=== PATIENT | female | born 1970 | race Caucasian/White ===

== ENCOUNTER 2017-08-12 13:30 | Emergency (ER) | payer BC, MEDICAID, OTHER ==
[2017-08-12] MEDS ORDERED: Sodium Chloride 0.9% 10 ML Syringe FLUSH PRN (13:46)
[2017-08-12] MEDS ORDERED: Prochlorperazine 10 MG in Sodium Chloride 0.9% 50 ML IV ONE (13:46)
[2017-08-12] MEDS ORDERED: LORazepam 2 MG/ML SDV IVPUSH ONE (13:46)
[2017-08-12] MEDS ORDERED: Sodium Chloride 0.9% 1,000 ML IV SCH (14:00)
[2017-08-12] MEDS ORDERED: Prochlorperazine 10 MG/2 ML SDV ONE (14:06)
[2017-08-12] MEDS ORDERED: Prochlorperazine 10 MG in Sodium Chloride 0.9% 100 ML IV ONE (14:16)
[2017-08-12 16:59] VITALS: BP 122/76
--- NOTE | 2017-08-13 01:06 | ER ---
DATE SEEN: 08/12/2017 REASON FOR VISIT: Nausea and vomiting. HISTORY OF PRESENT ILLNESS: This is a 46-year-old female complaining of nausea, vomiting, and diarrhea for 4 to 5 days; unable to keep anything down; no abdominal pain; has anxiety, was recently started on Klonopin, but she still feels anxious; denies fever or chills. PAST SURGICAL HISTORY: Hysterectomy and C-sections x4. MEDICATIONS: Medications were reviewed. Please see Epic. PAST MEDICAL HISTORY: Bipolar disorder. PHYSICAL EXAMINATION: GENERAL: Anxious but not in distress. VITAL SIGNS: Normal vital signs. ENT: Negative. CHEST: Clear. ABDOMEN: Soft and benign. No tenderness or masses. LABORATORIES: Creatinine is 1.3. The rest of the electrolytes, urea, and blood counts are normal. IMPRESSION: 1. Acute gastroenteritis. 2. Anxiety. TREATMENT: 1. Compazine and lorazepam. 2. IV crystalloid 1 L. 3. Follow up in the office as needed. Return to the ED with any worsening symptoms. TIME SEEN: 1430 hours. /[id number] OPAL/AMI
== END 2017-08-12 15:32 | disposition home or self-care (01) ==
LOC: FB.ED 13:30
DX: K52.9 Noninfective gastroenteritis and colitis, unspecified (principal); F41.9 Anxiety disorder, unspecified
CPT/HCPCS: 36415; 80053; 85025; 96361; 96365; 96375; 99284; J0780; J2060; J7030; J7050

== ENCOUNTER 2020-01-28 23:09 | Emergency (ER) | payer SELFPAY ==
[2020-01-29 00:42] VITALS: BP 135/89; PULSE 90
--- NOTE | 2020-01-29 01:11 | EDM.PDOC ---
ED HPI GENERAL MEDICAL PROBLEM - General Chief Complaint: Gastrointestinal Problem Stated Complaint: NAUSEA; VOMITING; DIARHEA Time Seen by Provider: 01/28/20 23:15 Source of Information: Reports: Patient, Old Records History Limitations: Reports: No Limitations - History of Present Illness INITIAL COMMENTS - FREE TEXT/NARRATIVE: Mariana comes into [facility] ED with a 36 hour hx of Gi upset, some nausea and vomiting, and more recent diarrhea. There has been low grade fever, but no chills or sweats. There are no voiding sxs. She has tried no meds. bodyaching Pain Score (Numeric/FACES): 8 - Related Data Allergies Allergy/AdvReac Type Severity Reaction Status Date / Time Penicillins Allergy Unknown unknown Verified 08/12/17 14:32 propranolol Allergy Arrhythmias Verified 08/12/17 14:32 Home Meds: Home Meds FLUoxetine [PROzac] 20 mg PO ASDIRECTED 08/30/15 [History] Gabapentin [Neurontin] 300 mg PO ASDIRECTED 08/30/15 [History] QUEtiapine [SEROquel] 150 mg PO ASDIRECTED 08/30/15 [History] ClonazePAM [KlonoPIN] 0.5 tab PO BID 08/12/17 [History] [place] Carbonate 900 mg PO DAILY 08/12/17 [History] Past Medical History Psychiatric History: Reports: Anxiety, Bipolar, Depression Social & Family History - Family History Family Medical History: No Pertinent Family History - Tobacco Use Tobacco Use Status *Q: Former Tobacco User Used Tobacco, but Quit: Yes Month/Year Tobacco Last Used: 1999 - Caffeine Use Caffeine Use: Reports: None ED ROS GENERAL - Review of Systems Review Of Systems: Comprehensive ROS is negative, except as noted in HPI. ED EXAM, GI/ABD - Physical Exam Exam: See Below Exam Limited By: No Limitations General Appearance: Alert, WD/WN, No Apparent Distress, Obese Eyes: Bilateral: Normal Appearance, EOMI Ears: Normal External Exam Nose: Normal Inspection Throat/Mouth: Normal Inspection, Normal Lips, Normal Gums, Normal Oropharynx, Normal Voice Head: Normocephalic Neck: Normal Inspection, Supple, Non-Tender Respiratory/Chest: Lungs Clear Cardiovascular: Regular Rate, Rhythm, No Murmur GI/Abdominal Exam: Normal Bowel Sounds, Soft, Non-Tender, No Organomegaly, No Distention, No Mass (Female) Exam: Deferred Rectal (Female) Exam: Deferred Back Exam: Normal Inspection Extremities: Normal Inspection Neurological: Alert, Oriented, CN II-XII Intact, Normal Cognition, Normal Gait, No Motor/Sensory Deficits Psychiatric: Normal Affect, Normal Mood Skin Exam: Warm, Dry, Intact, Normal Color, No Rash Lymphatic: No Adenopathy Course - Vital Signs Text/Narrative:: A requested Covid 19 screen was NEG. Last Recorded V/S: Last Vital Signs Temp 36.6 C 01/29/20 00:20 Pulse 90 01/29/20 00:20 Resp 19 01/29/20 00:20 BP 135/89 01/29/20 00:20 Pulse Ox 98 01/29/20 00:20 - Orders/Labs/Meds Labs: Laboratory Tests 01/28/20 Range/Units 23:10 SARS-CoV-2 RNA ([facility]) Negative (NEGATIVE) Departure - Departure Time of Disposition: 00:15 Disposition: Home, Self-Care 01 Condition: Fair Clinical Impression: Gastroenteritis - Discharge Information *PRESCRIPTION DRUG MONITORING PROGRAM REVIEWED*: Not Applicable *COPY OF PRESCRIPTION DRUG MONITORING REPORT IN PATIENT [place]: Not Applicable Instructions: Viral Gastroenteritis, Adult Referrals: PCP,None [Primary Care Provider] - Forms: ED Department Discharge Additional Instructions: Try BRAT diet (Banana, Rice , Apple, Tea) then gradually advance diet as tolerated. Follow up with your Primary Care Provider as needed. Sepsis Event Note (ED) - Evaluation Sepsis Screening Result: No Definite Risk - Focused Exam Vital Signs: Vital Signs Temp Pulse Resp BP Pulse Ox 01/29/20 00:20 36.6 C 90 19 135/89 98 01/28/20 23:09 36.4 C 74 17 140/99 H 100 - Problem List & Annotations (1) Gastroenteritis SNOMED Code(s): 45084019 Code(s): K52.9 - NONINFECTIVE GASTROENTERITIS AND COLITIS, UNSPECIFIED Status: Acute Annotation/Comment:: I suggested Immodium for diarrhea, hydration, and rest. A note for work was provided. - Problem List Review Problem List Initiated/Reviewed/Updated: Yes - Assessment/Plan Plan: Follow up with PCP if needed.
== END 2020-01-29 00:20 | disposition home or self-care (01) ==
LOC: FB.ED 23:09
DX: K52.9 Noninfective gastroenteritis and colitis, unspecified (principal); F41.9 Anxiety disorder, unspecified; F31.9 Bipolar disorder, unspecified; Z87.891 Personal history of nicotine dependence; Z20.828 Contact with and (suspected) exposure to other viral communicable diseases; Z88.0 Allergy status to penicillin; Z88.8 Allergy status to other drugs, medicaments and biological substances; Z79.899 Other long term (current) drug therapy
CPT/HCPCS: 99283; 99284; U0002

== ENCOUNTER 2022-11-18 13:49 | Emergency (ER) | payer BC ==
[2022-11-18] MEDS ORDERED: Lidocaine 1% 5 ML VIAL INFILT ONE (13:50)
[2022-11-18] MEDS ORDERED: Rabies Immune Globulin/PF (HyperRAB) 300 UNIT/ML 1 ML SDV IM ONE ×2 (14:14→14:30)
[2022-11-18] MEDS ORDERED: Rabies Vaccine (Avian) 2.5 Unit Inj Kit IM ONE (14:14)
[2022-11-18] MEDS ORDERED: cefTRIAXone 1 GM Vial IM ONE (14:17)
[2022-11-18] MEDS ORDERED: metroNIDAZOLE 500 MG Tab PO ONE (14:17)
[2022-11-18] MEDS ORDERED: Ketorolac 30 MG/ML SDV IM ONE (14:18)
[2022-11-18] MEDS ORDERED: Diphtheria,Pertussis(Acell),Tetanus Vaccine 0.5 ML Syringe IM ONE (15:58)
[2022-11-18 17:25] VITALS: BP 121/81; PULSE 90
== END 2022-11-18 16:26 | disposition home or self-care (01) ==
LOC: FB.ED 13:49
DX: S51.852A Open bite of left forearm, initial encounter (principal); Z23 Encounter for immunization; Z88.0 Allergy status to penicillin; Z88.8 Allergy status to other drugs, medicaments and biological substances; W54.0XXA Bitten by dog, initial encounter
CPT/HCPCS: 12001; 90375; 90471; 90675; 90715; 96372; 99283; A9270; J0696; J1885

== ENCOUNTER 2024-06-18 20:38 | Observation (INO) | payer BC, MEDICAID ==
[2024-06-18] MEDS ORDERED: Sodium Chloride 0.9% 10 ML Syringe FLUSH PRN (20:40)
[2024-06-18] MEDS: LORazepam 2 MG/ML SDV IVPUSH ONE (21:04)
[2024-06-18] MEDS: Ondansetron 4 MG/2 ML SDV IVPUSH ONE (21:04)
[2024-06-18] MEDS: Sodium Chloride 0.9% 1,000 ML IV SCH ×2 (21:04→22:31)
[2024-06-18 21:19] LABS: BLOOD UREA NITROGEN,BUN 19 mg/dL (7-18); BUN/CREATININE RATIO 12.7 (9-20); CALCIUM 10.6 mg/dL (8.6-10.2); CARBON DIOXIDE,CO2 18 mmol/L (21-32); CHLORIDE,CL 102 mmol/L (100-110); CREATININE 1.5 mg/dL (0.55-1.02); ESTIMATED GFR 42 mL/min (>60); GLUCOSE RANDOM 137 mg/dL (80-116); POTASSIUM,K 3.4 mmol/L (3.5-5.3); SODIUM,NA 141 mmol/L (135-145)
[2024-06-18 21:22] LABS: BASOPHILS PERCENT AUTO 0.2 % (0.2-1.5); EOSINOPHILS ABSOLUTE AUTO 0.1 x10-3/uL (0.0-0.8); EOSINOPHILS PERCENT AUTO 0.6 % (0.6-8.1); HEMATOCRIT 48.2 % (34.2-48.2); HEMOGLOBIN 16.4 g/dL (11.4-15.5); LYMPHOCYTES ABSOLUTE AUTO 2.4 x10-3/uL (1.0-4.4); LYMPHOCYTES PERCENT AUTO 26.5 % (18.4-52.1); MEAN CORPUSCULAR HEMOGLOBIN 31.3 pg (23.9-33.9); MEAN CORPUSCULAR HGB CONC 33.9 g/dL (31.9-34.8); MEAN CORPUSCULAR VOLUME 92.4 fL (76.7-100.5); MEAN PLATELET VOLUME 7.7 fL (7.1-12.4); MONOCYTES ABSOLUTE AUTO 0.4 x10-3/uL (0.3-1.0); NEUTROPHILS ABSOLUTE AUTO 6.3 x10-3/uL (1.5-6.3); NEUTROPHILS PERCENT AUTO 68.7 % (30.8-76.2); PLATELET COUNT,PLT 295 x10(3)uL (151-488); RED BLOOD CELL COUNT 5.22 x10(6)uL (3.60-5.20); RED CELL DISTRIBUTION WIDTH 13.7 % (12.3-16.5); WHITE BLOOD CELL COUNT,WBC 9.1 x10-3/uL (3.0-10.3)
[2024-06-18 21:25] LABS: A/G RATIO 1.1; ALANINE AMINOTRANSFERASE,ALT 23 U/L (12-36); ALBUMIN 4.7 g/dL (3.5-5.2); ALKALINE PHOSPHATASE 61 IU/L (56-112); ASPARTATE AMNIOTRANSFERASE,AST 18 IU/L (5-25); BILIRUBIN TOTAL 0.6 mg/dL (0.1-1.3); PROTEIN TOTAL,TP 8.9 g/dL (6.0-8.0)
[2024-06-18 21:27] LABS: TROPONIN I 5.9 pg/mL (4.0-60.3)
[2024-06-18 21:28] LABS: ETHANOL BLOOD MEDICAL < 0.03 % (<0.03)
[2024-06-18 21:34] LABS: LACTIC ACID 4.7 mmol/L (0.4-2.0)
[2024-06-18 21:51] LABS: HEMOGLOBIN A1C 5.4 % (<5.7)
[2024-06-18] MEDS: Iopamidol 755 Mg/ML 100 ML Bottle IV SCH (21:59)
[2024-06-18 22:09] LABS: BILIRUBIN,URINE NEGATIVE (NEGATIVE); GLUCOSE,URINE NORMAL (NORMAL); KETONES,URINE 50 mg/dL (NEGATIVE); LEUKOCYTE ESTERASE,URINE NEGATIVE (NEGATIVE); NITRITE,URINE NEGATIVE (NEGATIVE); OCCULT BLOOD,URINE TRACE (NEGATIVE); PROTEIN,URINE TRACE mg/dL (NEGATIVE); UROBILINOGEN,URINE NORMAL (NEGATIVE)
[2024-06-18 22:10] LABS: APPEARANCE,URINE CLEAR (CLEAR); COLOR,URINE YELLOW (YELLOW)
[2024-06-18] MEDS: Ketorolac 30 MG/ML SDV IVPUSH ONE (22:18)
[2024-06-18] MEDS: Pantoprazole 40 MG Vial IVPUSH ONE (22:18)
[2024-06-18 22:24] LABS: AMPHETAMINES SCREEN, URINE NEGATIVE (NEGATIVE); BARBITURATE SCREEN,URINE NEGATIVE (NEGATIVE); BENZODIAZEPINES SCREEN,URINE POSITIVE (NEGATIVE); METHADONE SCREEN, URINE NEGATIVE (NEGATIVE); METHAMPHETAMINE SCREEN, URINE NEGATIVE (NEGATIVE); OXYCODONE SCREEN,URINE NEGATIVE (NEGATIVE)
[2024-06-18 22:25] LABS: BUPRENORPHINE SCREEN,URINE NEGATIVE (NEGATIVE); THC SCREEN,URINE POSITIVE (NEGATIVE)
[2024-06-18 22:34] LABS: BACTERIA,URINE NOT SEEN (NS); EPITHELIAL CELLS,URINE FEW; MUCUS,URINE FEW (NS); RBC,URINE 0-5 (0-5); WBC,URINE 0-5 (0-5)
[2024-06-18 22:37] LABS: BASE EXCESS VENOUS,POC -5 mmol/L (-2 - 3+); PCO2 VENOUS,POC 28 mmHg (41-51); PH VENOUS,POC 7.42 pH Units (7.32-7.43)
[2024-06-18] MEDS ORDERED: Ondansetron 4 MG/2 ML SDV IV PRN (22:42)
[2024-06-18] MEDS: Morphine 2 MG/ML SYRINGE IVPUSH PRN (22:53)
[2024-06-18] MEDS: Metoclopramide 10 MG/2 ML SDV IVPUSH PRN (22:55)
[2024-06-19] MEDS: Enoxaparin 40 MG/0.4 ML Syringe SUBCUT SCH (01:56)
[2024-06-19] MEDS: LORazepam 2 MG/ML SDV IV PRN (02:10)
[2024-06-19 06:47] LABS: BASOPHILS PERCENT AUTO 0.1 % (0.2-1.5); EOSINOPHILS ABSOLUTE AUTO 0.1 x10-3/uL (0.0-0.8); EOSINOPHILS PERCENT AUTO 0.6 % (0.6-8.1); HEMATOCRIT 40.4 % (34.2-48.2); HEMOGLOBIN 13.1 g/dL (11.4-15.5); LYMPHOCYTES ABSOLUTE AUTO 1.2 x10-3/uL (1.0-4.4); LYMPHOCYTES PERCENT AUTO 12.6 % (18.4-52.1); MEAN CORPUSCULAR HEMOGLOBIN 30.3 pg (23.9-33.9); MEAN CORPUSCULAR HGB CONC 32.5 g/dL (31.9-34.8); MEAN PLATELET VOLUME 7.8 fL (7.1-12.4); MONOCYTES ABSOLUTE AUTO 0.3 x10-3/uL (0.3-1.0); MONOCYTES PERCENT AUTO 3.2 % (4.4-15.7); NEUTROPHILS ABSOLUTE AUTO 7.7 x10-3/uL (1.5-6.3); NEUTROPHILS PERCENT AUTO 83.5 % (30.8-76.2); PLATELET COUNT,PLT 259 x10(3)uL (151-488); RED BLOOD CELL COUNT 4.34 x10(6)uL (3.60-5.20); WHITE BLOOD CELL COUNT,WBC 9.2 x10-3/uL (3.0-10.3)
[2024-06-19 07:01] LABS: A/G RATIO 1.1; ALANINE AMINOTRANSFERASE,ALT 22 U/L (12-36); ALBUMIN 3.9 g/dL (3.5-5.2); ALKALINE PHOSPHATASE 47 IU/L (56-112); ASPARTATE AMNIOTRANSFERASE,AST 15 IU/L (5-25); BILIRUBIN TOTAL 0.5 mg/dL (0.1-1.3); BLOOD UREA NITROGEN,BUN 15 mg/dL (7-18); BUN/CREATININE RATIO 11.5 (9-20); CARBON DIOXIDE,CO2 22 mmol/L (21-32); CHLORIDE,CL 107 mmol/L (100-110); CREATININE 1.3 mg/dL (0.55-1.02); EST CRCL DRUG DOSING (CG) 36.77 mL/min; ESTIMATED GFR 50 mL/min (>60); GLUCOSE RANDOM 113 mg/dL (80-116); POTASSIUM,K 3.9 mmol/L (3.5-5.3); PROTEIN TOTAL,TP 7.4 g/dL (6.0-8.0); SODIUM,NA 142 mmol/L (135-145)
[2024-06-19] MEDS ORDERED: LORazepam 0.5 MG Tab PO PRN (09:11)
[2024-06-19] MEDS ORDERED: Albuterol 6.7 GM Inhaler INH PRN (09:11)
[2024-06-19] MEDS ORDERED: Temazepam 15 MG Cap PO PRN (09:11)
[2024-06-19] MEDS ORDERED: SUMAtriptan 50 MG Tab PO PRN (09:19)
[2024-06-19 11:25] VITALS: BP 95/58; PULSE 78
[2024-06-19] MEDS ORDERED: Pramipexole 0.25 MG Tab PO SCH (21:00)
[2024-06-19] MEDS ORDERED: Pregabalin 75 MG Cap PO SCH (21:00)
[2024-06-19] MEDS ORDERED: NALTREXONE HCL 4.5 MG PO SCH (21:00)
[2024-06-19] MEDS ORDERED: Prazosin 1 MG Cap PO SCH (21:00)
[2024-06-20] MEDS ORDERED: Levothyroxine 75 MCG Tab PO SCH (06:00)
[2024-06-20] MEDS ORDERED: Non-Formulary Medication 1 Each (Fluoxetine Hcl [Fluoxetine Hcl] 40 MG Capsule) PO SCH (09:00)
[2024-06-20] MEDS ORDERED: Rosuvastatin 20 MG Tab PO SCH (09:00)
== END 2024-06-19 11:10 | disposition home or self-care (01) ==
LOC: FB.ED 20:38 → FB.MS 22:42
PROVIDERS: ADMIT Family Medicine; ATTEND Family Medicine
DX: R11.2 Nausea with vomiting, unspecified (principal); T43.225A Adverse effect of selective serotonin reuptake inhibitors, initial encounter; T48.295A Adverse effect of other drugs acting on muscles, initial encounter; N17.9 Acute kidney failure, unspecified; F31.9 Bipolar disorder, unspecified; F43.10 Post-traumatic stress disorder, unspecified; F41.1 Generalized anxiety disorder; M79.7 Fibromyalgia; E86.0 Dehydration; Z79.899 Other long term (current) drug therapy
CPT/HCPCS: 36415; 74177; 80053; 80307; 81001; 83036; 83605; 83735; 84484; 85025; 86140; 96361; 96374; 96375; 96376; 99222; 99238; 99285; 99285-25; G0378; J1885; J2060; J2270; J2405; J2470; J2765; J7030; Q9967

== ENCOUNTER 2024-06-20 19:34 | Observation (INO) | payer BC, MEDICAID ==
[2024-06-20] MEDS: LORazepam 2 MG/ML SDV IVPUSH ONE (19:56)
[2024-06-20] MEDS: hydrOXYzine HCl 50 MG/ML SDV IM ONE (19:56)
[2024-06-20] MEDS: Sodium Chloride 0.9% 1,000 ML IV SCH (20:00)
[2024-06-20 20:03] LABS: BASOPHILS ABSOLUTE AUTO 0.1 x10-3/uL (0.0-0.1); BASOPHILS PERCENT AUTO 0.6 % (0.2-1.5); EOSINOPHILS PERCENT AUTO 0.3 % (0.6-8.1); HEMATOCRIT 39.3 % (34.2-48.2); HEMOGLOBIN 13.2 g/dL (11.4-15.5); LYMPHOCYTES ABSOLUTE AUTO 2.4 x10-3/uL (1.0-4.4); LYMPHOCYTES PERCENT AUTO 23.3 % (18.4-52.1); MEAN CORPUSCULAR HEMOGLOBIN 30.7 pg (23.9-33.9); MEAN CORPUSCULAR HGB CONC 33.7 g/dL (31.9-34.8); MEAN CORPUSCULAR VOLUME 90.9 fL (76.7-100.5); MEAN PLATELET VOLUME 7.9 fL (7.1-12.4); MONOCYTES ABSOLUTE AUTO 0.6 x10-3/uL (0.3-1.0); MONOCYTES PERCENT AUTO 6.1 % (4.4-15.7); NEUTROPHILS ABSOLUTE AUTO 7.3 x10-3/uL (1.5-6.3); NEUTROPHILS PERCENT AUTO 69.7 % (30.8-76.2); PLATELET COUNT,PLT 269 x10(3)uL (151-488); RED BLOOD CELL COUNT 4.32 x10(6)uL (3.60-5.20); RED CELL DISTRIBUTION WIDTH 13.9 % (12.3-16.5); WHITE BLOOD CELL COUNT,WBC 10.5 x10-3/uL (3.0-10.3)
[2024-06-20 20:06] LABS: BLOOD UREA NITROGEN,BUN 10 mg/dL (7-18); BUN/CREATININE RATIO 7.1 (9-20); CALCIUM 9.4 mg/dL (8.6-10.2); CARBON DIOXIDE,CO2 21 mmol/L (21-32); CHLORIDE,CL 106 mmol/L (100-110); CREATININE 1.4 mg/dL (0.55-1.02); ESTIMATED GFR 46 mL/min (>60); GLUCOSE RANDOM 101 mg/dL (80-116); POTASSIUM,K 3.1 mmol/L (3.5-5.3); SODIUM,NA 141 mmol/L (135-145)
[2024-06-20 20:12] LABS: A/G RATIO 1.2; ALANINE AMINOTRANSFERASE,ALT 27 U/L (12-36); ALBUMIN 4.1 g/dL (3.5-5.2); ALKALINE PHOSPHATASE 46 IU/L (56-112); ASPARTATE AMNIOTRANSFERASE,AST 25 IU/L (5-25); BILIRUBIN TOTAL 0.6 mg/dL (0.1-1.3); PROTEIN TOTAL,TP 7.5 g/dL (6.0-8.0)
[2024-06-20] MEDS: Ondansetron 4 MG/2 ML SDV IVPUSH ONE (21:22)
[2024-06-20] MEDS ORDERED: Naloxone 0.4 MG/ML SDV IVPUSH PRN (21:23)
[2024-06-20] MEDS: HYDROmorphone 2 MG/ML SDV IVPUSH ONE (21:39)
[2024-06-20] MEDS: Sodium Chloride 0.9% 1,000 ML IV ONE (22:01)
[2024-06-20] MEDS ORDERED: LORazepam 2 MG/ML SDV IVPUSH PRN (23:00)
[2024-06-20] MEDS ORDERED: Ondansetron 4 MG/2 ML SDV IV PRN (23:00)
[2024-06-20] MEDS ORDERED: NS + KCl 20mEq/L 1,000 ML IV SCH (23:00)
[2024-06-21] MEDS: Pantoprazole 40 MG Vial IVPUSH ONE (00:05)
[2024-06-21] MEDS: Metoclopramide 10 MG/2 ML SDV IV PRN (00:05)
[2024-06-21] MEDS: Sodium Chloride 0.9% 10 ML Syringe FLUSH PRN (00:06)
[2024-06-21] MEDS: HYDROmorphone 2 MG/ML SDV IVPUSH PRN (00:09)
[2024-06-21 00:51] LABS: BILIRUBIN,URINE NEGATIVE (NEGATIVE); GLUCOSE,URINE NORMAL (NORMAL); KETONES,URINE 15 mg/dL (NEGATIVE); LEUKOCYTE ESTERASE,URINE NEGATIVE (NEGATIVE); NITRITE,URINE NEGATIVE (NEGATIVE); OCCULT BLOOD,URINE NEGATIVE (NEGATIVE); PROTEIN,URINE NEGATIVE (NEGATIVE); UROBILINOGEN,URINE NORMAL (NEGATIVE)
[2024-06-21 00:53] LABS: APPEARANCE,URINE CLEAR (CLEAR); COLOR,URINE YELLOW (YELLOW)
[2024-06-21 00:55] LABS: BACTERIA,URINE NOT SEEN (NS); RBC,URINE 0-5 (0-5); SQUAMOUS EPITHELIAL CELLS,UR FEW (NS,R,O); WBC,URINE 0-5 (0-5)
[2024-06-21 00:57] LABS: AMPHETAMINES SCREEN, URINE NEGATIVE (NEGATIVE); BARBITURATE SCREEN,URINE NEGATIVE (NEGATIVE); BENZODIAZEPINES SCREEN,URINE POSITIVE (NEGATIVE)
[2024-06-21 00:58] LABS: BUPRENORPHINE SCREEN,URINE NEGATIVE (NEGATIVE); METHADONE SCREEN, URINE NEGATIVE (NEGATIVE); METHAMPHETAMINE SCREEN, URINE NEGATIVE (NEGATIVE); OXYCODONE SCREEN,URINE NEGATIVE (NEGATIVE); THC SCREEN,URINE NEGATIVE (NEGATIVE)
[2024-06-21 06:55] LABS: BASOPHILS PERCENT AUTO 0.5 % (0.2-1.5); EOSINOPHILS PERCENT AUTO 0.1 % (0.6-8.1); HEMATOCRIT 37.1 % (34.2-48.2); HEMOGLOBIN 12.4 g/dL (11.4-15.5); LYMPHOCYTES ABSOLUTE AUTO 3.2 x10-3/uL (1.0-4.4); LYMPHOCYTES PERCENT AUTO 44.5 % (18.4-52.1); MEAN CORPUSCULAR HEMOGLOBIN 30.7 pg (23.9-33.9); MEAN CORPUSCULAR HGB CONC 33.5 g/dL (31.9-34.8); MEAN CORPUSCULAR VOLUME 91.8 fL (76.7-100.5); MEAN PLATELET VOLUME 7.9 fL (7.1-12.4); MONOCYTES ABSOLUTE AUTO 0.7 x10-3/uL (0.3-1.0); MONOCYTES PERCENT AUTO 10.3 % (4.4-15.7); NEUTROPHILS ABSOLUTE AUTO 3.2 x10-3/uL (1.5-6.3); NEUTROPHILS PERCENT AUTO 44.6 % (30.8-76.2); PLATELET COUNT,PLT 249 x10(3)uL (151-488); RED BLOOD CELL COUNT 4.04 x10(6)uL (3.60-5.20); RED CELL DISTRIBUTION WIDTH 13.9 % (12.3-16.5); WHITE BLOOD CELL COUNT,WBC 7.1 x10-3/uL (3.0-10.3)
[2024-06-21 07:05] LABS: A/G RATIO 1.1; ALANINE AMINOTRANSFERASE,ALT 21 U/L (12-36); ALBUMIN 3.4 g/dL (3.5-5.2); ALKALINE PHOSPHATASE 39 IU/L (56-112); ASPARTATE AMNIOTRANSFERASE,AST 18 IU/L (5-25); BILIRUBIN TOTAL 0.7 mg/dL (0.1-1.3); BLOOD UREA NITROGEN,BUN 5 mg/dL (7-18); BUN/CREATININE RATIO 4.5 (9-20); CALCIUM 8.3 mg/dL (8.6-10.2); CARBON DIOXIDE,CO2 24 mmol/L (21-32); CHLORIDE,CL 108 mmol/L (100-110); CREATININE 1.1 mg/dL (0.55-1.02); EST CRCL DRUG DOSING (CG) 43.46 mL/min; ESTIMATED GFR 61 mL/min (>60); GLUCOSE RANDOM 80 mg/dL (80-116); POTASSIUM,K 3.4 mmol/L (3.5-5.3); PROTEIN TOTAL,TP 6.4 g/dL (6.0-8.0); SODIUM,NA 143 mmol/L (135-145)
[2024-06-21] MEDS: Potassium Chloride 20 MEQ Tab.ER PO SCH (09:06)
[2024-06-21] MEDS ORDERED: ZOLMITRIPTAN 5 MG PO PRN (11:35)
[2024-06-21] MEDS ORDERED: LORazepam 0.5 MG Tab PO PRN (11:35)
[2024-06-21] MEDS ORDERED: Albuterol 6.7 GM Inhaler INH PRN (11:35)
[2024-06-21] MEDS ORDERED: Temazepam 15 MG Cap PO PRN (11:35)
[2024-06-21] MEDS ORDERED: Ondansetron 4 MG Tab.DIS PO PRN (11:35)
[2024-06-21] MEDS: Rosuvastatin 20 MG Tab PO SCH (12:58)
[2024-06-21] MEDS: FLUoxetine 20 MG Cap PO SCH (12:58)
[2024-06-21] MEDS: Pregabalin 75 MG Cap PO SCH (12:59)
[2024-06-21 16:04] LABS: BLOOD UREA NITROGEN,BUN 7 mg/dL (7-18); BUN/CREATININE RATIO 5.8 (9-20); CALCIUM 8.1 mg/dL (8.6-10.2); CARBON DIOXIDE,CO2 25 mmol/L (21-32); CREATININE 1.2 mg/dL (0.55-1.02); EST CRCL DRUG DOSING (CG) 39.84 mL/min; ESTIMATED GFR 55 mL/min (>60); GLUCOSE RANDOM 87 mg/dL (80-116); POTASSIUM,K 3.5 mmol/L (3.5-5.3); SODIUM,NA 142 mmol/L (135-145)
[2024-06-21 16:10] LABS: CHLORIDE,CL 108 mmol/L (100-110)
[2024-06-21 16:24] VITALS: BP 105/66; PULSE 60
[2024-06-21] MEDS ORDERED: Prazosin 1 MG Cap PO SCH (21:00)
[2024-06-21] MEDS ORDERED: NALTREXONE HCL 4.5 MG PO SCH (21:00)
[2024-06-21] MEDS ORDERED: Pramipexole 0.25 MG Tab PO SCH (21:00)
[2024-06-22] MEDS ORDERED: Levothyroxine 75 MCG Tab PO SCH (06:00)
[2024-06-23 20:48] LABS: CREATININE,URINE - PER VOLUME 32 mg/dL; HOURS COLLECTED Not Provided hr; MAGNESIUM,URINE - PER VOLUME 3.1 mg/dL; TOTAL VOLUME Not Provided mL
== END 2024-06-21 17:09 | disposition home or self-care (01) ==
LOC: FB.ED 19:34 → FB.MS 23:00
PROVIDERS: ADMIT Family Medicine; ATTEND Family Medicine
DX: R11.2 Nausea with vomiting, unspecified (principal); F41.1 Generalized anxiety disorder; N17.9 Acute kidney failure, unspecified; M79.7 Fibromyalgia; G43.011 Migraine without aura, intractable, with status migrainosus; N18.32 Chronic kidney disease, stage 3b; F31.9 Bipolar disorder, unspecified; Z79.899 Other long term (current) drug therapy; Z88.0 Allergy status to penicillin
CPT/HCPCS: 36415; 80048; 80053; 80307; 81001; 83735; 85025; 99222; 99238; A9270-GY; J1171; J2060; J2405; J2470; J2765; J3410; J7030

== ENCOUNTER 2024-07-21 10:40 | Emergency (ER) | payer BC ==
[2024-07-21] MEDS: Prochlorperazine 10 MG/2 ML SDV IVPUSH ONE (11:55)
[2024-07-21] MEDS: Sodium Chloride 0.9% 1,000 ML IV ONE (11:56)
[2024-07-21] MEDS: Potassium Chloride 20 MEQ in Premix Bag 1 BAG IV ONE (11:56)
[2024-07-21] MEDS: Iopamidol 755 Mg/ML 100 ML Bottle IV SCH (13:08)
[2024-07-21 14:25] VITALS: BP 131/72; PULSE 81
== END 2024-07-21 14:15 | disposition home or self-care (01) ==
LOC: FB.ED 10:40
DX: K52.9 Noninfective gastroenteritis and colitis, unspecified (principal); E87.6 Hypokalemia; Z88.0 Allergy status to penicillin; Z88.8 Allergy status to other drugs, medicaments and biological substances; Z79.899 Other long term (current) drug therapy; Z79.890 Hormone replacement therapy; Z90.710 Acquired absence of both cervix and uterus
CPT/HCPCS: 74177; 96365; 96366; 96375; 99285; J0780; J3480; J7030; Q9967

== ENCOUNTER 2024-11-30 11:24 | Emergency (ER) | payer BC, MEDICAID ==
[2024-11-30 11:45] VITALS: BP 124/90; PULSE 90
[2024-11-30 12:09] LABS: BASOPHILS ABSOLUTE AUTO 0.0 x10-3/uL (0.0-0.1); BASOPHILS PERCENT AUTO 0.6 % (0.2-1.5); EOSINOPHILS ABSOLUTE AUTO 0.1 x10-3/uL (0.0-0.8); EOSINOPHILS PERCENT AUTO 1.2 % (0.6-8.1); LYMPHOCYTES ABSOLUTE AUTO 2.0 x10-3/uL (1.0-4.4); LYMPHOCYTES PERCENT AUTO 36.0 % (18.4-52.1); MEAN PLATELET VOLUME 7.5 fL (7.1-12.4); MONOCYTES ABSOLUTE AUTO 0.4 x10-3/uL (0.3-1.0); MONOCYTES PERCENT AUTO 6.6 % (4.4-15.7); NEUTROPHILS ABSOLUTE AUTO 3.2 x10-3/uL (1.5-6.3); NEUTROPHILS PERCENT AUTO 55.6 % (30.8-76.2); PLATELET COUNT,PLT 263 x10(3)uL (151-488); RED BLOOD CELL COUNT 4.50 x10(6)uL (3.60-5.20); RED CELL DISTRIBUTION WIDTH 13.5 % (12.3-16.5); WHITE BLOOD CELL COUNT,WBC 5.7 x10-3/uL (3.0-10.3)
[2024-11-30 12:16] LABS: BLOOD UREA NITROGEN,BUN 18 mg/dL (7-18); CARBON DIOXIDE,CO2 24 mmol/L (21-32); CHLORIDE,CL 105 mmol/L (100-110); CREATININE 1.2 mg/dL (0.55-1.02); ESTIMATED GFR 54 mL/min (>60); GLUCOSE RANDOM 85 mg/dL (80-116); POTASSIUM,K 4.2 mmol/L (3.5-5.3); SODIUM,NA 139 mmol/L (135-145)
[2024-11-30 12:21] LABS: A/G RATIO 1.1; ALANINE AMINOTRANSFERASE,ALT 16 U/L (12-36); ASPARTATE AMNIOTRANSFERASE,AST 12 IU/L (5-25); BILIRUBIN TOTAL 0.3 mg/dL (0.1-1.3); PROTEIN TOTAL,TP 7.5 g/dL (6.0-8.0)
[2024-11-30] MEDS: Ketorolac 30 MG/ML SDV IM ONE (12:31)
== END 2024-11-30 12:51 | disposition home or self-care (01) ==
LOC: FB.ED 11:24
DX: M79.7 Fibromyalgia (principal); Z90.710 Acquired absence of both cervix and uterus; Z90.89 Acquired absence of other organs; F17.290 Nicotine dependence, other tobacco product, uncomplicated; Z88.0 Allergy status to penicillin; Z88.8 Allergy status to other drugs, medicaments and biological substances
CPT/HCPCS: 36415; 80053; 85025; 86140; 96372; 99284; J1885

== ENCOUNTER 2025-01-28 12:57 | Emergency (ER) | payer MEDICAID ==
[2025-01-28 13:12] VITALS: BP 112/82; PULSE 70
[2025-01-28] MEDS: Ketorolac 30 MG/ML SDV IM ONE (13:43)
== END 2025-01-28 14:21 | disposition home or self-care (01) ==
LOC: FB.ED 12:57
DX: M79.7 Fibromyalgia (principal); Z88.0 Allergy status to penicillin; Z88.8 Allergy status to other drugs, medicaments and biological substances; Z79.899 Other long term (current) drug therapy; Z79.890 Hormone replacement therapy; Z87.891 Personal history of nicotine dependence
CPT/HCPCS: 96372; 99283; A9270; J1885; J8540